=== PATIENT | female | born 1965 | race Caucasian/White ===

== ENCOUNTER 2017-02-22 15:10 | Inpatient (IN) | payer OTHER ==
[~2017-02-22] VITALS: Ht 160 cm; Wt 94.1 kg
[2017-02-22 16:00] VITALS: Ht 160 cm; Wt 94.1 kg
[2017-02-22 18:16] LABS: PLATELET COUNT 191 x10^3mcL (130-400)
[2017-02-22 18:21] LABS: BASOPHIL % 0 % (0-2); RED CELL DISTRIBUTION WIDTH 22.8 % (11.5-14.5)
[2017-02-22 18:23] LABS: CALCIUM 9.2 mg/dL (8.5-10.1); CARBON DIOXIDE 24.5 mmol/L (21-32); CHLORIDE SERUM 104 mmol/L (98-107); CREATININE SERUM 0.5 mg/dL (0.6-1.0); GFR1 > 60 mL/min; GLUCOSE SERUM 104 mg/dL (74-106); POTASSIUM SERUM 3.8 mmol/L (3.5-5.1); SODIUM SERUM 138 mmol/L (136-145)
[2017-02-22 18:28] LABS: ALBUMIN 4.1 g/dL (3.4-5.0); ALKALINE PHOSPHATASE 83 U/L (46-116); ALT/SGPT 16 U/L (14-59); AST/SGOT 8 U/L (15-37); BILIRUBIN TOTAL 0.72 mg/dL (0.20-1.00)
[2017-02-22 18:41] LABS: rbc morphology (normal/abnorm) ABNORMAL (NORMAL)
[2017-02-22 18:42] LABS: ovalocyte/elliptocyte 2+; tear drop cell (dacryocyte) 1+
[2017-02-22 19:14] LABS: microscopic required? NO
[2017-02-22 19:24] LABS: UA SPECIFIC GRAVITY <=1.005 (1.005-1.035); urine erythrocyte NEGATIVE (NEGATIVE)
[2017-02-22 19:30] LABS: MAGNESIUM 2.1 mg/dL (1.8-2.4); PHOSPHOROUS 4.7 mg/dL (2.5-4.9)
[2017-02-22 19:36] LABS: FREE T4 1.15 ng/dL (0.76-1.46); FREE THYROXINE INDEX 3.3 ug/dL (1.4-4.5); T4(THYROXINE) 10.5 ug/dL (4.7-13.3)
[2017-02-22 19:37] LABS: CHOLESTEROL/HDL RATIO 2.3; T3 TOTAL 1.3 ng/mL
[2017-02-22 20:09] VITALS: BP 157/69
[2017-02-23 06:39] LABS: CALCIUM 8.3 mg/dL (8.5-10.1); CHLORIDE SERUM 105 mmol/L (98-107); CREATININE SERUM 0.6 mg/dL (0.6-1.0); GFR1 > 60 mL/min; GLUCOSE SERUM 103 mg/dL (74-106); MAGNESIUM 1.9 mg/dL (1.8-2.4); PHOSPHOROUS 4.7 mg/dL (2.5-4.9); SODIUM SERUM 140 mmol/L (136-145)
[2017-02-23 09:03] LABS: IRON 8 ug/dL (50-170); TOTAL IRON BINDING CAPACITY 328 ug/dL (250-450)
[2017-02-23 09:28] LABS: PLATELET COUNT 160 x10^3mcL (130-400)
[2017-02-23 09:34] LABS: RED CELL DISTRIBUTION WIDTH 23.8 % (11.5-14.5)
[2017-02-23 10:20] LABS: RED BLOOD CELLS 3.34 M/mm3 (4.10-5.10)
[2017-02-23 11:55] VITALS: BP 121/59
[2017-02-23 12:46] LABS: BASOPHIL % 0.8 % (0-2); PLATELET COUNT 186 x10^3mcL (130-400)
[2017-02-23 12:50] LABS: RED CELL DISTRIBUTION WIDTH 22.8 % (11.5-14.5)
[2017-02-23 13:48] LABS: BAND NEUTROPHIL 0 % (0-10); BASOPHIL 0 % (0-2); MONOCYTE 6 % (0-7); SEGMENTED NEUTROPHILS 61 % (37-75); rbc morphology (normal/abnorm) ABNORMAL (NORMAL)
[2017-02-23 13:49] LABS: PLATELET MORPHOLOGY LARGE PLATELET SEEN; ovalocyte/elliptocyte 1+; tear drop cell (dacryocyte) 1+
[2017-02-23 13:51] LABS: ovalocyte/elliptocyte 1+; rbc morphology (normal/abnorm) ABNORMAL (NORMAL)
[2017-02-23 14:01] LABS: tear drop cell (dacryocyte) 1+
[2017-02-23 17:52] VITALS: BP 142/65
[2017-02-23 21:27] VITALS: BP 112/52
[2017-02-24 03:12] LABS: BASOPHIL % 0.6 % (0-2); PLATELET COUNT 170 x10^3mcL (130-400)
[2017-02-24 03:23] LABS: RED CELL DISTRIBUTION WIDTH 30.7 % (11.5-14.5)
[2017-02-24 04:11] LABS: rbc morphology (normal/abnorm) ABNORMAL (NORMAL)
[2017-02-24 04:12] LABS: tear drop cell (dacryocyte) 2+
[2017-02-24 05:42] VITALS: BP 127/62
[2017-02-24 06:47] LABS: CALCIUM 8.7 mg/dL (8.5-10.1); CARBON DIOXIDE 23.9 mmol/L (21-32); CHLORIDE SERUM 107 mmol/L (98-107); CREATININE SERUM 0.5 mg/dL (0.6-1.0); GFR1 > 60 mL/min; GLUCOSE SERUM 100 mg/dL (74-106); MAGNESIUM 2.1 mg/dL (1.8-2.4); PHOSPHOROUS 4.4 mg/dL (2.5-4.9); POTASSIUM SERUM 3.8 mmol/L (3.5-5.1); SODIUM SERUM 142 mmol/L (136-145)
[2017-02-24 07:09] LABS: BASOPHIL % 0.1 % (0-2); PLATELET COUNT 176 x10^3mcL (130-400)
[2017-02-24 08:00] LABS: RED CELL DISTRIBUTION WIDTH 31.8 % (11.5-14.5)
[2017-02-24 09:44] VITALS: BP 127/47
[2017-02-24 10:11] LABS: rbc morphology (normal/abnorm) ABNORMAL (NORMAL)
[2017-02-24 13:35] VITALS: BP 130/49
[2017-02-24 17:32] VITALS: BP 115/54
[2017-02-24] MEDS ORDERED: FERROUS SULFAT325 M2 PO (17:43)
[2017-02-24] MEDS ORDERED: VITAMIN C100 M2 PO (17:44)
[2017-02-24 17:52] VITALS: BP 115/54
[2017-02-24 20:00] VITALS: BP 133/61
== END 2017-02-24 20:18 | disposition home or self-care (01) | DRG 812 ==
LOC: ED 15:10 → DU 18:37
PROVIDERS: Emergency Medicine; Family Medicine; Internal Medicine Gastroenterology
PROC: 30233N1 Transfusion of Nonautologous Red Blood Cells into Peripheral Vein, Percutaneous Approach (ICD-10-PCS; 2017-02-23)
PROC: 0DB68ZX Excision of Stomach, Via Natural or Artificial Opening Endoscopic, Diagnostic (ICD-10-PCS; principal; 2017-02-24 12:30)
PROC: 0DJD8ZZ Inspection of Lower Intestinal Tract, Via Natural or Artificial Opening Endoscopic (ICD-10-PCS; 2017-02-24 12:30)
DX: D50.0 Iron deficiency anemia secondary to blood loss (chronic) (principal); D25.9 Leiomyoma of uterus, unspecified; K31.7 Polyp of stomach and duodenum; E83.51 Hypocalcemia
CPT/HCPCS: 43235; 45378; 83880; 84439; J1200; J1610; J2250; J2310; J2916; J3010; J3490; J7030; J7040; J7050; P9016; Q0092; Q0163

== ENCOUNTER 2017-10-21 23:05 | Inpatient (IN) | payer OTHER ==
[~2017-10-21] VITALS: Ht 165.1 cm; Wt 101.7 kg
[~2017-10-21 23:05] MED LIST: FERROUS SULFAT325 M2 PO; VITAMIN C100 M2 PO
[2017-10-21 23:13] VITALS: Ht 165.1 cm; Wt 101.7 kg
[2017-10-22 00:09] LABS: BASOPHIL % 0.4 % (0-2); PLATELET COUNT 249 x10^3mcL (130-400)
[2017-10-22 00:10] LABS: RED CELL DISTRIBUTION WIDTH 18.7 % (11.5-14.5)
[2017-10-22 00:17] LABS: CALCIUM 9.3 mg/dL (8.5-10.1); CARBON DIOXIDE 27.4 mmol/L (21-32); CHLORIDE SERUM 103 mmol/L (98-107); CREATININE SERUM 0.7 mg/dL (0.6-1.0); GFR1 > 60 mL/min; GLUCOSE SERUM 114 mg/dL (74-106); POTASSIUM SERUM 3.7 mmol/L (3.5-5.1); SODIUM SERUM 137 mmol/L (136-145)
[2017-10-22 00:30] LABS: ALBUMIN 3.6 g/dL (3.4-5.0); ALKALINE PHOSPHATASE 113 U/L (46-116); ALT/SGPT 27 U/L (14-59); AST/SGOT 17 U/L (15-37); BILIRUBIN TOTAL 0.6 mg/dL (0.20-1.00); FREE T4 1.14 ng/dL (0.76-1.46); TOTAL PROTEIN, SERUM 8.2 g/dL (6.4-8.2)
[2017-10-22 02:11] LABS: UA SPECIFIC GRAVITY 1.015 (1.005-1.035); microscopic required? YES; urine erythrocyte NEGATIVE (NEGATIVE)
[2017-10-22 02:20] LABS: AMPHETAMINE QUAL UR NONE DETECTED (See below)
[2017-10-22] MEDS ORDERED: HCTZ/LISINOPRIL1 TAB PO (02:32)
[2017-10-22 04:58] VITALS: BP 125/74
[2017-10-22 08:41] VITALS: BP 148/76
[2017-10-22 10:29] VITALS: BP 148/76
== END 2017-10-22 11:01 | disposition home or self-care (01) | DRG 313 ==
LOC: ED 23:05 → DU 10-22 02:01
PROVIDERS: Emergency Medicine
DX: R07.89 Other chest pain (principal); I48.0 Paroxysmal atrial fibrillation; I10 Essential (primary) hypertension; Z88.8 Allergy status to other drugs, medicaments and biological substances
CPT/HCPCS: 83880; 84439; 85378; G0480; J3490; Q0092